=== PATIENT | female | born 1995 | race Caucasian/White ===

== ENCOUNTER 2020-01-02 13:43 | Outpatient (CLI) | payer BC ==
--- NOTE | 2020-01-02 15:11 | US ---
EXAMINATION TYPE: US venous doppler duplex LE DATE OF EXAM: 01/02/2020 3:05 PM COMPARISON: NONE CLINICAL HISTORY: Rule out DVT, calf pain. Right calf pain. patient is . SIDE PERFORMED: Bilateral TECHNIQUE: The lower extremity deep venous system is examined utilizing real time linear array sonog katie with graded compression, doppler sonography and color-flow sonography. VESSELS IMAGED: External Iliac Vein (EIV) Common Femoral Vein Deep Femoral Vein Greater Saphenous Vein * Femoral Vein Popliteal Vein Small Saphenous Vein * Proximal Calf Veins (* superficial vessels) Right Leg: Negative for DVT Left Leg: Negative for DVT Grayscale, color doppler, spectral doppler imaging performed of the deep veins of the bilateral lower extremities. There is normal flow, compressibility, vascular waveforms. IMPRESSION: No ultrasound evidence for acute DVT in either lower extremity.
[2020-01-02 15:34] VITALS: BP 132/67; PULSE 89; RESP 16; TEMP 97.7
--- NOTE | 2020-01-03 23:18 | P.MSEPDOC ---
Presenting Problems - Arrival Data Date of Arrival on Unit: 01/02/20 Time of Arrival on Unit: 13:43 Mode of Transport: Ambulatory - Complaint OB-Reason for Admission/Chief Complaint: Pain Comment: R calf pain, biltarel leg swelling Medical History - Information : 1 Para: 0 Term: 0 : 0 Abortions: Spontaneous or Elective: 0 Number of Living Children: 0 - Gestational Age Gestational Age by SAE (wks/days): 37 Weeks and 5 Days Review of Systems - Review of Systems Constitutional: No problems Breast: No problems ENT: No problems Cardiovascular: No problems Respiratory: No problems Gastrointestinal: No problems Genitourinary: No problems Musculoskeletal: No problems Neurological: No problems Skin: No problems Vital Signs - Temperature Temperature: 97.7 F Temperature Source: Temporal Artery Scan - Pulse Right Sitting Brachial Pulse Rate: 89 Pulse Assessment Method: Automatic Cuff - Respirations Respiratory Rate: 16 Oxygen Delivery Method: Room Air O2 Sat by Pulse Oximetry: 98 - Blood Pressure Right Arm Sitting Blood Pressure: 132/67 Blood Pressure Mean: 88 Blood Pressure Source: Automatic Cuff Medical Screen Scoring (Pre) - Cervical Exam Dilation: Exam Deferred Effacement: Exam Deferred Membranes: Intact - Uterine Contractions Frequency: > 5 minutes apart = 1 Duration: N/A Intensity: N/A - Maternal Vital Signs Maternal Temperature: N/A Maternal Blood Pressure: N/A Signs of Preeclampsia: N/A Maternal Respirations: N/A - Assessment - Baby A Baseline FHR: 140 Heart Rate - NICHD Category: Category I (Normal) = 0 NST: Reactive Position: N/A Station: N/A - Total Score - Baby A Total Score - Baby A: 1 - Total Score - Baby B Total Score - Baby B: 1 - Total Score - Baby C Total Score - Baby C: 1 - Level of Risk - Baby A Level of Risk - Baby A: Low (0-5) - Level of Risk - Baby B Level of Risk - Baby B: Low (0-5) - Level of Risk - Baby C Level of Risk - Baby C: Low (0-5) Physician Notification (Pre) - Physician Notified Physician Notified Date: 01/02/20 Physician Notified Time: 14:23 New Order Received: Yes - Notification Comment Comment: Sharla fofana\Dr. Mckeon, advmn , 37 5/7, c/o right calf pain, dull achey in nature, increases with weight bearing and walking, lessen when sitting. Denies injury. No redness, heat or pain with palpation. Orders rec'd for LE doppler, negative for DVT. Disposition - Disposition OB Disposition: Discharge to home, Written follow up instructions reviewed Discharge Date: 01/02/20 Discharge Time: 15:20 I agree with the RN Medical Screening Exam: Yes Risk & Benefit of care provided described in d/c instruction: Yes Diagnosis: GENERALIZED EDEMA
== END 2020-01-02 15:20 | disposition home or self-care (01) ==
LOC: FBPOP 13:43
PROVIDERS: ATTEND Obstetrics & Gynecology
DX: O12.03 Gestational edema, third trimester (principal); Z3A.37 37 weeks gestation of pregnancy
CPT/HCPCS: 59025; 93970; 99213

== ENCOUNTER 2020-01-16 06:01 | Inpatient (IN) | payer BC ==
[2020-01-16] MEDS ORDERED: METHYLERGONOVINE 0.2 MG/ML 1 ML AMP IM PRN (06:21)
[2020-01-16] MEDS ORDERED: LIDOCAINE 0.5% (PF) 5 MG/ML (50 ML SDV) SQ PRN (06:21)
[2020-01-16] MEDS ORDERED: TERBUTALINE 1 MG/ML VIAL SQ PRN (06:21)
[2020-01-16] MEDS ORDERED: CARBOPROST TROMETHAMINE 250 MCG/ML 1 ML AMP IM PRN (06:21)
[2020-01-16] MEDS ORDERED: OXYTOCIN 10 UNIT/ML 1 ML VIAL IM PRN (06:21)
[2020-01-16] MEDS ORDERED: PENICILLIN G POTASSIUM 5,000,000 UNIT in DEXTROSE 5% IN WATER 100 ML IVPB STA ×2 (06:24)
[2020-01-16] MEDS ORDERED: OXYTOCIN 30 UNITS/500 ML NS 30 UNIT in SALINE 1 500ML.BAG IV SCH (06:30)
[2020-01-16 06:33] LABS: Basophils % (A) 1 %; Eosinophils # (A) 0.1 k/uL (0-0.7); Eosinophils % (A) 1 %; HGB 12.3 gm/dL (11.4-16.0); Lymphocytes # (A) 1.6 k/uL (1.0-4.8); Lymphocytes % (A) 20 %; MCH 29.5 pg (25.0-35.0); MCHC 33.2 g/dL (31.0-37.0); MCV 88.7 fL (80.0-100.0); Mean Platelet Volume 10.9; Monocytes # (A) 0.5 k/uL (0-1.0); Monocytes % (A) 6 %; Neutrophils # (A) 5.7 k/uL (1.3-7.7); Neutrophils % (A) 72 %; Platelet Count 176 k/uL (150-450); RBC 4.16 m/uL (3.80-5.40); RDW 13.4 % (11.5-15.5)
[2020-01-16] MEDS ORDERED: AMPICILLIN 2,000 MG in SODIUM CHLORIDE 0.9% 100 ML IVPB STA (06:59)
[2020-01-16] MEDS: LACTATED RINGERS 1,000 ML IV SCH ×2 (07:04→13:39)
[2020-01-16] MEDS ORDERED: BUTORPHANOL 1 MG/ML 1 ML VIAL IV PRN (09:27)
[2020-01-16] MEDS ORDERED: PENICILLIN G POTASSIUM 2,500,000 UNIT in DEXTROSE 5% IN WATER 100 ML IVPB SCH ×2 (10:30)
[2020-01-16] MEDS: AMPICILLIN 1,000 MG in SODIUM CHLORIDE 0.9% 50 ML IVPB SCH ×2 (11:57→22:06)
[2020-01-16] MEDS ORDERED: ROPIVACAINE 5MG/ML 20ML VIAL ONE (13:45)
[2020-01-16] MEDS ORDERED: SODIUM CHLORIDE 0.9% 100 ML BAG ONE (13:45)
[2020-01-16] MEDS ORDERED: fentaNYL (PF) 50 MCG/ML 5 ML AMP ONE (13:45)
[2020-01-16] MEDS ORDERED: diphenhydrAMINE 50 MG CAP PO PRN (15:50)
[2020-01-16] MEDS ORDERED: diphenhydrAMINE 25 MG CAP PO PRN (15:50)
[2020-01-16] MEDS ORDERED: HYDROCORTISONE 2.5% RECTAL CREAM 30 GM TUBE RECTAL PRN (15:50)
[2020-01-16] MEDS ORDERED: BENZOCAINE/MENTHOL SPRAY 1 GM/SPRAY AEROSOL TOPICAL PRN (15:50)
[2020-01-16] MEDS ORDERED: SIMETHICONE 80 MG CHEWABLE PO PRN (15:50)
[2020-01-16] MEDS ORDERED: ZOLPIDEM 5 MG TAB PO PRN (15:50)
[2020-01-16] MEDS ORDERED: diphenhydrAMINE 50 MG/ML 1 ML VIAL IVP PRN ×2 (15:50)
[2020-01-16] MEDS ORDERED: WITCH HAZEL 1 EACH MED..PAD TOPICAL PRN (15:50)
[2020-01-16] MEDS ORDERED: LANOLIN CREAM 5 GM TUBE TOPICAL PRN (15:50)
[2020-01-16] MEDS ORDERED: ACETAMINOPHEN TAB 325 MG TAB PO PRN (15:50)
[2020-01-16] MEDS ORDERED: OXYTOCIN 20 UNITS/1000 ML NS 1,000 ML IV SCH (16:00)
[2020-01-16] MEDS: IBUPROFEN 600 MG TAB PO PRN (21:10)
[2020-01-16] MEDS: SENNOSIDES-DOCUSATE SODIUM 1 EACH TAB PO SCH (22:04)
[2020-01-17] MEDS: IBUPROFEN 600 MG TAB PO PRN ×2 (03:06→21:47)
[2020-01-17 06:04] LABS: Basophils % (A) 0 %; Eosinophils # (A) 0.1 k/uL (0-0.7); Eosinophils % (A) 1 %; HCT 30.9 % (34.0-46.0); HGB 10.3 gm/dL (11.4-16.0); Hypochromasia Slight; Lymphocytes # (A) 1.5 k/uL (1.0-4.8); Lymphocytes % (A) 14 %; MCH 29.9 pg (25.0-35.0); MCHC 33.3 g/dL (31.0-37.0); MCV 89.9 fL (80.0-100.0); Monocytes # (A) 0.6 k/uL (0-1.0); Monocytes % (A) 6 %; Neutrophils % (A) 77 %; Platelet Count 146 k/uL (150-450); RBC 3.44 m/uL (3.80-5.40); RDW 13.5 % (11.5-15.5); WBC 10.5 k/uL (3.8-10.6)
--- NOTE | 2020-01-17 07:31 | P.HPOB ---
History of Present Illness H&P Date: 01/16/20 Chief Complaint: induction of labor 24-year-old presented at 39 weeks and 5 days for induction of labor. Her cervix was 17 m dilated, 70% effaced, -2 station. She is nya irregularly. heart tones 135 with moderate variability and reactive. Review of Systems All systems: negative Constitutional: Denies chills, Denies fever Eyes: denies blurred vision, denies pain Ears, nose, mouth and throat: Denies headache, Denies sore throat Cardiovascular: Denies chest pain, Denies shortness of breath Respiratory: Denies cough Gastrointestinal: Denies abdominal pain, Denies diarrhea, Denies nausea, Denies vomiting Genitourinary: Denies dysuria, Denies hematuria Musculoskeletal: Denies myalgias Integumentary: Denies pruritus, Denies rash Neurological: Denies numbness, Denies weakness Psychiatric: Denies anxiety, Denies depression Endocrine: Denies fatigue, Denies weight change Past Medical History Past Medical History: Thyroid Disorder Additional Past Medical History / Comment(s): Obstetric history: This is her first and she's had failed care with me since the first trimester. Blood type is A+, and Ms. negative, rubella immune, hepatitis B negative, RPR nonreactive, GBS positive. In the last month of the baby did have kelly e dilated renal pelvices. This did resolve in utero for likely recommend a renal ultrasound. History of Any Multi-Drug Resistant Organisms: None Reported Past Surgical History: No Surgical Hx Reported Past Anesthesia/Blood Transfusion Reactions: No Reported Reaction Past Psychological History: No Psychological Hx Reported Smoking Status: Never smoker Past Alcohol Use History: None Reported Past Drug Use History: None Reported - Past Family History Mother Family Medical History: No Reported History Medications and Allergies Home Medications Medication Instructions Recorded Confirmed Type Calcium Carbonate [Tums] 1 tab PO Q6HR PRN 01/02/20 01/16/20 History Levothyroxine Sodium [Synthroid] 50 mcg PO DAILY 01/16/20 01/16/20 History Allergies Allergy/AdvReac Type Severity Reaction Status Date / Time No Known Allergies Allergy Verified 01/16/20 06:18 Exam Osteopathic Statement: *. No significant issues noted on an osteopathic structural exam other than those noted in the History and Physical/Consult. Vital Signs Temp Pulse Resp BP Pulse Ox 01/17/20 00:00 98.1 F 96 18 116/74 99 01/16/20 20:00 98.1 F 77 16 116/63 01/16/20 17:13 98.6 F 67 16 115/56 01/16/20 16:13 98.3 F 76 17 119/59 01/16/20 15:58 90 18 128/60 01/16/20 15:43 91 18 119/60 01/16/20 15:28 88 18 136/63 01/16/20 15:13 98.1 F 100 18 138/62 01/16/20 07:35 97.0 F L 96 18 123/74 97 Intake and Output 01/16/20 01/17/20 01/17/20 22:59 06:59 14:59 Output Total 150 Balance -150 Output: Estimated Blood Loss 150 Other: # Voids 1 1 Heart: Regular rate and rhythm Lungs: Clear to auscultation bilaterally Abdomen: Soft, nontender Extremities: Negative Homans sign Results Result Diagrams: 01/17/20 05:27 Abnormal Lab Results - Last 24 Hours (Table) 01/17/20 Range/Units 05:27 RBC 3.44 L (3.80-5.40) m/uL Hgb 10.3 L (11.4-16.0) gm/dL Hct 30.9 L (34.0-46.0) % Plt Count 146 L (150-450) k/uL Neutrophils # 8.0 H (1.3-7.7) k/uL Assessment and Plan (1) Normal labor Current Visit: Yes Status: Acute Code(s): O80 - ENCOUNTER FOR FULL-TERM UNCOMPLICATED DELIVERY; Z37.9 - OUTCOME OF DELIVERY, UNSPECIFIED SNOMED Code(s): 18651987 Plan: 1. Induction of labor with amniotomy and Pitocin 2. Anticipate normal vaginal delivery
--- NOTE | 2020-01-17 07:33 | P.PROBDLV ---
Vaginal Delivery Note - . Vaginal Delivery Note: 24-year-old presented at 39 weeks and 5 days for induction of labor. Her cervix was 17 m dilated, 70% effaced, -2 station. She is nya irregularly. heart tones 135 with moderate variability and reactive. Pitocin was started. Amniotomy performed at 7:42 AM clear fluid noted. When she was uncomfortable she had one dose of Stadol and then when she was 3 cm she got an epidural. Her cervix was completely dilated at 1454. She pushed, delivered a viable female over intact perineum under epidural anesthesia at 1503. Head delivered OA, nuchal cord 1 easily reduced, anterior shoulder delivered gentle downward guidance for by posterior shoulder and rest of body. Nose and mouth bulb suctioned, cord clamped and cut, infant placed mother's abdomen. Apgars 8, 9, weight 7 lbs. 14 oz. Placenta delivered spontaneously, intact with three-vessel cord at 1506. Vagina, cervix, perineum inspected. First-degree midline laceration and right periurethral laceration repaired with 3-0 Vicryl. Quantitative blood loss 150 ml. Mother and baby in stable condition.
--- NOTE | 2020-01-17 07:35 | P.DS ---
Providers Date of admission: 01/16/20 06:01 Expected date of discharge: 01/17/20 Attending physician: Sharla Mckeon Primary care physician: Stated None - Discharge Diagnosis(es) (1) Normal labor Current Visit: Yes Status: Suspected (2) Normal vaginal delivery Current Visit: Yes Status: Acute Hospital Course: Patient presented for induction of labor. She underwent a normal vaginal delivery. course was uncomplicated. She'll be discharged home day #1 in stable condition to follow-up with me in 6 weeks. Plan - Discharge Summary New Discharge Prescriptions: New Ibuprofen [Motrin] 600 mg PO Q6HR PRN #30 tab PRN Reason: Mild Pain Or Fever >= 100.5 No Action Calcium Carbonate [Tums] 1 tab PO Q6HR PRN PRN Reason: Heartburn Levothyroxine Sodium [Synthroid] 50 mcg PO DAILY Discharge Medication List Calcium Carbonate [Tums] 1 tab PO Q6HR PRN 01/02/20 [History] Levothyroxine Sodium [Synthroid] 50 mcg PO DAILY 01/16/20 [History] Ibuprofen [Motrin] 600 mg PO Q6HR PRN #30 tab 01/17/20 [Rx] Follow up Appointment(s)/Referral(s): Sharla Mckeon DO [Doctor of Osteopathic Medicine] - 6 Weeks Discharge Disposition: HOME SELF-CARE
[2020-01-17] MEDS: SENNOSIDES-DOCUSATE SODIUM 1 EACH TAB PO SCH ×2 (08:44→21:47)
[2020-01-18] MEDS: SENNOSIDES-DOCUSATE SODIUM 1 EACH TAB PO SCH (08:42)
[2020-01-18] MEDS: IBUPROFEN 600 MG TAB PO PRN (12:16)
[2020-01-19 08:31] VITALS: BP 115/71; PULSE 68; RESP 16; TEMP 98
== END 2020-01-18 15:10 | disposition home or self-care (01) | DRG 807 ==
LOC: 4FBP 06:01
PROVIDERS: ADMIT Obstetrics & Gynecology; ATTEND Obstetrics & Gynecology
PROC: 0HQ9XZZ Repair Perineum Skin, External Approach (ICD-10-PCS; principal; 2020-01-16)
PROC: 3E033VJ Introduction of Other Hormone into Peripheral Vein, Percutaneous Approach (ICD-10-PCS; principal; 2020-01-16)
PROC: 10907ZC Drainage of Amniotic Fluid, Therapeutic from Products of Conception, Via Natural or Artificial Opening (ICD-10-PCS; principal; 2020-01-16)
PROC: 10E0XZZ Delivery of Products of Conception, External Approach (ICD-10-PCS; principal; 2020-01-16)
DX: O69.81X0 Labor and delivery complicated by cord around neck, without compression, not applicable or unspecified (principal); Z37.0 Single live birth; O70.0 First degree perineal laceration during delivery; O71.82 Other specified trauma to perineum and vulva; O99.824 Streptococcus B carrier state complicating childbirth; Z3A.39 39 weeks gestation of pregnancy; Z79.890 Hormone replacement therapy
CPT/HCPCS: 85025; 86850; 86900; 86901

== ENCOUNTER 2023-06-11 06:25 | Inpatient (IN) | payer BC, OTHER ==
[2023-06-11] MEDS ORDERED: miSOPROStoL 200 MCG TAB PO PRN (06:42)
[2023-06-11] MEDS ORDERED: CARBOPROST TROMETHAMINE 250 MCG/ML 1 ML AMP IM PRN (06:42)
[2023-06-11] MEDS ORDERED: OXYTOCIN 10 UNIT/ML 1 ML VIAL IM PRN (06:42)
[2023-06-11] MEDS ORDERED: METHYLERGONOVINE 0.2 MG/ML 1 ML AMP IM PRN (06:42)
[2023-06-11] MEDS ORDERED: TRANEXAMIC 1,000 MG/100ML-NACL 1,000 MG in EMPTY BAG 1 BAG IV PRN (06:42)
[2023-06-11] MEDS ORDERED: CITRIC ACID-SODIUM CITRATE 15 ML CUP PO ONE (06:42)
[2023-06-11 07:02] LABS: Basophils # (A) 0.1 k/uL (0-0.2); Basophils % (A) 1 %; Eosinophils # (A) 0.1 k/uL (0-0.7); Eosinophils % (A) 1 %; HCT 32.4 % (34.0-46.0); HGB 10.5 gm/dL (11.4-16.0); Hypochromasia Slight; Lymphocytes # (A) 1.5 k/uL (1.0-4.8); Lymphocytes % (A) 17 %; MCHC 32.4 g/dL (31.0-37.0); MCV 86.4 fL (80.0-100.0); Mean Platelet Volume 11.1; Monocytes # (A) 0.5 k/uL (0-1.0); Monocytes % (A) 6 %; Neutrophils # (A) 6.5 k/uL (1.3-7.7); Neutrophils % (A) 73 %; Platelet Count 157 k/uL (150-450); RBC 3.75 m/uL (3.80-5.40); RDW 13.9 % (11.5-15.5); WBC 8.8 k/uL (3.8-10.6)
[2023-06-11 07:09] VITALS: RESP 16
--- NOTE | 2023-06-11 07:46 | P.HPOB ---
History of Present Illness H&P Date: 06/11/23 Chief Complaint: breech 27-year-old presents at 39 weeks and 2 days for primary low transverse C- section due to breech presentation of the fetus. Review of Systems All systems: negative Constitutional: Denies chills, Denies fever Eyes: denies blurred vision, denies pain Ears, nose, mouth and throat: Denies headache, Denies sore throat Cardiovascular: Denies chest pain, Denies shortness of breath Respiratory: Denies cough Gastrointestinal: Denies abdominal pain, Denies diarrhea, Denies nausea, Denies vomiting Genitourinary: Denies dysuria, Denies hematuria Musculoskeletal: Denies myalgias Integumentary: Denies pruritus, Denies rash Neurological: Denies numbness, Denies weakness Psychiatric: Denies anxiety, Denies depression Endocrine: Denies fatigue, Denies weight change Past Medical History Past Medical History: Thyroid Disorder Additional Past Medical History / Comment(s): Obstetric history: This is her secon , first was a normal vaginal delivery at term. Blood type is A+, abs. negative, rubella immune, hepatitis B negative, RPR nonreactive. Baby has been in janice breech position for the last several weeks. History of Any Multi-Drug Resistant Organisms: None Reported Past Surgical History: No Surgical Hx Reported Past Anesthesia/Blood Transfusion Reactions: No Reported Reaction Past Psychological History: No Psychological Hx Reported Smoking Status: Never smoker Past Alcohol Use History: None Reported Past Drug Use History: None Reported - Past Family History Mother Family Medical History: No Reported History Medications and Allergies Home Medications Medication Instructions Recorded Confirmed Type Calcium Carbonate [Tums] 1 tab PO Q6HR PRN 01/02/20 06/11/23 History Levothyroxine Sodium [Synthroid] 50 mcg PO DAILY 01/16/20 06/11/23 History Allergies Allergy/AdvReac Type Severity Reaction Status Date / Time No Known Allergies Allergy Verified 01/16/20 06:18 Exam Osteopathic Statement: *. No significant issues noted on an osteopathic structural exam other than those noted in the History and Physical/Consult. Vital Signs Temp Pulse Resp BP Pulse Ox 06/11/23 06:39 97.5 F L 89 16 120/62 97 Intake and Output 06/10/23 06/11/23 06/11/23 22:59 06:59 14:59 Other: Weight 88.451 kg Heart: Regular rate and rhythm Lungs: Clear to auscultation bilaterally Abdomen: Soft, nontender Extremities: Negative Homans sign Results Result Diagrams: 06/11/23 06:40 Abnormal Lab Results - Last 24 Hours (Table) 06/11/23 Range/Units 06:40 RBC 3.75 L (3.80-5.40) m/uL Hgb 10.5 L (11.4-16.0) gm/dL Hct 32.4 L (34.0-46.0) % Assessment and Plan (1) Breech presentation of fetus Current Visit: Yes Status: Acute Code(s): O32.1XX0 - MATERNAL CARE FOR BREECH PRESENTATION, UNSP SNOMED Code(s): 7574540 Plan: 1. primary low transverse
[2023-06-11] MEDS ORDERED: ONDANSETRON 4 MG/2 ML VIAL ONE (07:55)
[2023-06-11] MEDS ORDERED: NALBUPHINE 10 MG/ML (10 ML MDV) ONE (07:55)
[2023-06-11] MEDS ORDERED: OXYTOCIN 10 UNIT/ML 1 ML VIAL ONE (07:55)
[2023-06-11] MEDS ORDERED: MORPHINE SULFATE (PF) 0.3 MG/0.3 ML SYR ONE (07:55)
[2023-06-11] MEDS ORDERED: KETOROLAC 30 MG/ML 1 ML VIAL ONE (07:55)
[2023-06-11] MEDS ORDERED: PHENYLEPHRINE-0.9% NACL SYG 1,000 MCG/10 ML SYRINGE ONE (07:55)
[2023-06-11] MEDS ORDERED: NALOXONE 0.4 MG/ML 1 ML VIAL IV PRN (08:38)
[2023-06-11] MEDS ORDERED: METOCLOPRAMIDE 5 MG/ML 2 ML VIAL IVP PRN (08:38)
[2023-06-11] MEDS ORDERED: diphenhydrAMINE 50 MG CAP PO PRN (08:38)
[2023-06-11] MEDS ORDERED: SIMETHICONE 80 MG CHEWABLE PO PRN (08:38)
[2023-06-11] MEDS ORDERED: diphenhydrAMINE 50 MG/ML 1 ML VIAL IVP PRN ×2 (08:38)
[2023-06-11] MEDS ORDERED: ZOLPIDEM 5 MG TAB PO PRN (08:38)
[2023-06-11] MEDS ORDERED: diphenhydrAMINE 25 MG CAP PO PRN (08:38)
[2023-06-11] MEDS ORDERED: ONDANSETRON 4 MG/2 ML VIAL IVP PRN (08:38)
[2023-06-11] MEDS ORDERED: LANOLIN CREAM 5 GM TUBE TOPICAL PRN (08:38)
--- NOTE | 2023-06-11 08:38 | P.OP ---
Date of Procedure: 06/11/23 Preoperative Diagnosis: 1. at 39 weeks 3 days 2. breech Postoperative Diagnosis: same Procedure(s) Performed: Primary low transverse Anesthesia: spinal Surgeon: Sharla Mckeon Pastrycook'S Assistant #1: Kenyetta Gonzáles Estimated Blood Loss (ml): 600 IV fluids (ml): 900 Urine output (ml): 100 Pathology: none sent Condition: stable Disposition: floor Operative Findings: viable female in double footling breech position. Apgars 9,9. weight 7#1oz. normal uterus, tubes and ovaries. Description of Procedure: Patient was taken to the operating room where spinal anesthesia was found be adequate. She was prepped and draped in normal sterile fashion in dorsal supine position with a leftward tilt. Pfannenstiel skin incision was made the scalpel and carried through to the underlying layer of fascia with the scalpel. Fascia was incised in midline and carried bilaterally with the Alonso scissors. The superior aspect of the fascial incision was grasped with Basilio clamps elevated and the underlying rectus muscles dissected off with the Alonso's. Attention was then turned to inferior aspect of same incision which in a similar fashion was grasped tented up and the underlying rectus muscles dissected off with the Alonso's. The rectus muscles were the midline and the peritoneum was identified tented up and entered sharply with the scalpel. The incision was extended superiorly and inferiorly with good visualization of the bladder. The bladder blade was inserted and the vesicouterine peritoneum was incised the Metzenbaums then carried bilaterally and bladder flap created digitally. A low transverse incision was then made on the uterus with the scalpel. This was carried bilaterally and digital manner. Infant found in double footling breech position, delivered in normal breech fashion,nose and mouth bulb suctioned, cord clamped and cut, handed off to waiting nurses. Apgars 9,9, weight 7 lbs. 1 oz. Placenta delivered manually, intact with three-vessel cord. The uterus is exteriorized and cleared of all clots and debris. The uterine incision was closed with 0 Vicryl in a running locked fashion. Second layer of the same sutures used in imbricating fashion to obtain excellent hemostasis. Bladder flap was then reapproximated using 2-0 Vicryl in a running fashion. Both ovaries and tubes appeared normal. The uterus was placed back into the abdomen. The peritoneum was reapproximated using 2-0 Vicryl in a running fashion. The muscles were reapproximated using 2-0 Vicryl in interrupted fashion. The fascia was reapproximated using 0 Vicryl in a running fashion. The subcutaneous tissues closed with 3-0 Vicryl running fashion. The skin was closed norma. Patient tolerated the procedure well, sponge and instrument counts were correct times 2 and she was taken to the recovery room in stable condition.
[2023-06-11] MEDS ORDERED: CALCIUM CARBONATE 500 MG CHEWABLE PO PRN (08:40)
[2023-06-11] MEDS ORDERED: OXYTOCIN 30 UNITS/500 ML NS 30 UNIT in SALINE 1 500ML.BAG IV SCH (08:45)
[2023-06-11] MEDS: ACETAMINOPHEN TAB 500 MG TAB PO SCH ×2 (10:46→19:10)
[2023-06-11] MEDS: LEVOTHYROXINE 50 MCG TAB PO SCH (10:46)
[2023-06-11] MEDS: LACTATED RINGERS 1,000 ML IV SCH ×2 (12:08→20:18)
[2023-06-11] MEDS: KETOROLAC 15 MG/ML 1 ML VIAL IVP SCH ×2 (15:38→21:14)
[2023-06-11] MEDS: SENNOSIDES-DOCUSATE SODIUM 1 EACH TAB PO SCH (20:02)
[2023-06-12] MEDS: ACETAMINOPHEN TAB 500 MG TAB PO SCH ×4 (01:00→19:46)
[2023-06-12] MEDS: LACTATED RINGERS 1,000 ML IV SCH (01:01)
[2023-06-12] MEDS: KETOROLAC 15 MG/ML 1 ML VIAL IVP SCH ×2 (02:45→19:41)
[2023-06-12] MEDS: IBUPROFEN 600 MG TAB PO SCH ×4 (05:52→18:19)
[2023-06-12] MEDS: LEVOTHYROXINE 50 MCG TAB PO SCH (07:25)
--- NOTE | 2023-06-12 08:52 | P.PNOBGPC ---
Subjective - Subjective Principal diagnosis: Status post primary section postoperative day #1 Interval history: Patient is doing well. She is ambulating. She is passing flatus but no bowel movement yet. She is breast-feeding. Lochia is decreasing. Her pain is fairly well controlled with Toradol and Tylenol. Patient reports: Reports appetite normal, Reports voiding normally, Reports pain well controlled, Reports ambulating normally : doing well, nursing well Objective - Vital Signs Latest vital signs: Vital Signs Temp Pulse Resp BP Pulse Ox 06/12/23 07:47 97.7 F 84 16 106/56 97 06/12/23 04:00 98.1 F 87 16 96/60 06/12/23 00:00 98.1 F 82 16 91/52 06/11/23 20:00 98.2 F 73 16 109/69 06/11/23 16:00 97.4 F L 72 16 124/77 06/11/23 12:00 60 16 102/59 06/11/23 10:38 97.8 F 64 16 109/58 96 06/11/23 10:08 60 16 108/61 97 06/11/23 09:38 60 16 104/59 96 06/11/23 09:23 57 L 16 112/60 98 06/11/23 09:08 71 16 112/60 97 06/11/23 08:53 76 16 111/68 98 Intake and Output 06/11/23 06/12/23 06/12/23 22:59 06:59 14:59 Output Total 1400 600 Balance -1400 -600 Output: Urine 1400 600 Uretheral (Griffith) 250 Other: # Voids 1 1 1 - Exam Extremities: Present: normal. Absent: tenderness, edema Abdomen: Present: normal appearance, soft. Absent: distention, tenderness Incision: Present: normal, dry, intact. Absent: erythematous Uterus: Present: normal, firm. Absent: tenderness Assessment and Plan Assessment: Status post primary low transverse section postoperative day #1 Plan: Continue with postoperative and care today. Will order a abdominal support belt her patient request. Will advance diet as tolerated.
[2023-06-12 09:44] LABS: Basophils % (A) 0 %; Eosinophils # (A) 0.1 k/uL (0-0.7); Eosinophils % (A) 1 %; HCT 28.9 % (34.0-46.0); HGB 9.2 gm/dL (11.4-16.0); Hypochromasia Moderate; Lymphocytes # (A) 1.3 k/uL (1.0-4.8); Lymphocytes % (A) 13 %; MCH 28.4 pg (25.0-35.0); MCHC 31.8 g/dL (31.0-37.0); MCV 89.1 fL (80.0-100.0); Mean Platelet Volume 11.1; Monocytes # (A) 0.5 k/uL (0-1.0); Monocytes % (A) 5 %; Neutrophils % (A) 80 %; Platelet Count 147 k/uL (150-450); RBC 3.25 m/uL (3.80-5.40); RDW 13.9 % (11.5-15.5)
[2023-06-12] MEDS: SENNOSIDES-DOCUSATE SODIUM 1 EACH TAB PO SCH ×2 (10:23→19:46)
[2023-06-13] MEDS: IBUPROFEN 600 MG TAB PO SCH ×2 (00:13→12:32)
[2023-06-13 05:09] VITALS: TEMP 98.1
[2023-06-13] MEDS: ACETAMINOPHEN TAB 500 MG TAB PO SCH (07:46)
[2023-06-13] MEDS: LEVOTHYROXINE 50 MCG TAB PO SCH (07:46)
[2023-06-13] MEDS: SENNOSIDES-DOCUSATE SODIUM 1 EACH TAB PO SCH (07:46)
[2023-06-13 07:57] VITALS: BP 105/68; PULSE 80
--- NOTE | 2023-06-13 11:05 | P.DS ---
Providers Date of admission: 06/11/23 06:25 Expected date of discharge: 06/13/23 Attending physician: Sharla Mckeon Primary care physician: Stated None Hospital Course: This is a 27-year-old female 2 para 1 at 39-2/7 weeks who presented for primary section due to breech presentation. She delivered a viable female infant via section on 06/11/2023 with weight of 7 lbs. 1 oz. Her postoperative course has been uncomplicated. She is passing flatus and bowel movement now. Lochia is decreasing. She is breast-feeding. Pain is been fairly well-controlled with ibuprofen and Tylenol. Vital signs are stable. Abdomen is soft with positive bowel sounds 4. Incision is clean dry and intact with norma in place. Extremities show negative Homans. Trace edema is noted in both lower extremities. Impression is status post primary low transverse section postoperative day #2. Plan is to discharge home today. Routine postoperative and instructions are given. Norma will be re moved and Steri-Strips placed prior to discharge. She is advised to follow up in the office in approximately 1 week for a postoperative check with Dr. Mckeon and then in 6 weeks for a check. Is advised to call the office if she has any further questions or concerns prior to her appointment time. She will be given a prescription for ibuprofen. Procedures: Primary low transverse section on 06/11/2023 Patient Condition at Discharge: Stable Plan - Discharge Summary New Discharge Prescriptions: New Ibuprofen [Motrin] 600 mg PO Q6H #60 tab Continue Levothyroxine Sodium [Synthroid] 50 mcg PO DAILY No Action Calcium Carbonate [Tums] 1 tab PO Q6HR PRN PRN Reason: Heartburn Discharge Medication List Calcium Carbonate [Tums] 1 tab PO Q6HR PRN 01/02/20 [History] Levothyroxine Sodium [Synthroid] 50 mcg PO DAILY 01/16/20 [History] Ibuprofen [Motrin] 600 mg PO Q6H #60 tab 06/13/23 [Rx] Follow up Appointment(s)/Referral(s): Sharla Mckeon DO [Doctor of Osteopathic Medicine] - 1 Week (PO 06-21-2023 @11:30 Am PP 07-19-2023 @10:45 Am) Activity/Diet/Wound Care/Special Instructions: Instructions 1. Do not begin any exercise program for 3 weeks. 2. Do not resume sexual relations for 3 weeks or longer if uncomfortable. 3. You may take tub baths or showers at any time. 4. You may use tampons if desired after 3 weeks. 5. Keep the area of episiotomy (stitches) clean and dry. 6. If you are not nursing, wear a good fitting, supportive bra during the day and limit fluid intake for at least 1 week to prevent breast engorgement. 7. Call the office, [phone], within the next week to make appointment for your 6 week checkup if it has not already been made. 8. Report any of the following occurrences to the doctor promptly: a. Heavy, excessive bleeding b. Chills, fever c. Burning or frequency of urination d. Pain or redness and breasts if nursing e. Increasing pain or swelling in episiotomy (stitches). In addition to the above instructions, the following additional should be followed: 1. No heavy lifting or straining (exercising) until after 6 week checkup. 2. Keep abdominal incision clean and dry: You may wear a dressing if more comfortable. 3. Make office appointment for 10 days after going home or as instructed by her doctor. Discharge Disposition: HOME SELF-CARE
--- NOTE | 2023-06-13 18:47 | P.PN ---
Progress Note - Text 06/12/23 733am 27-year-old female status post with spinal Duramorph. Patient seen and evaluated for postop pain control, patient has a VAS of 0 with no complains of nausea vomiting , she has minimal pruritus
== END 2023-06-13 14:09 | disposition home or self-care (01) | DRG 788 ==
LOC: 4FBP 06:25
PROVIDERS: ADMIT Obstetrics & Gynecology; ATTEND Obstetrics & Gynecology
PROC: 10D00Z1 Extraction of Products of Conception, Low, Open Approach (ICD-10-PCS; principal; 2023-06-11 08:00)
DX: O32.8XX0 Maternal care for other malpresentation of fetus, not applicable or unspecified (principal); Z3A.39 39 weeks gestation of pregnancy; E07.9 Disorder of thyroid, unspecified; O99.284 Endocrine, nutritional and metabolic diseases complicating childbirth; Z37.0 Single live birth; Z79.890 Hormone replacement therapy; Z79.899 Other long term (current) drug therapy
CPT/HCPCS: 85025; 86850; 86900; 86901